=== PATIENT | female | born 1960 | race Caucasian/White ===

== ENCOUNTER → 2019-10-23 11:15 | Outpatient (CLI) | payer OTHER, SELFPAY ==
--- NOTE | ~2019-10-23 | DEXA_ITS ---
Bone Density Report Name: Dyana Weiner Age: 59 Sex: Female Ethnicity: White Date of : 1960 Indication: postmenopausal; screening for osteoporosis; height loss; Referring Provider: Hazel Mcmillan Study: Bone densitometry was performed. Exam Date: October 23, 2019 Accession number: [id number] Bone Density: Region BMD T-score Z-score Classification AP Spine (L1-L4) 1.065 0.2 1.7 Normal Femoral Neck (Left) 0.895 0.4 1.8 Normal Total Hip (Left) 1.103 1.3 2.4 Normal Femoral Neck (Right) 0.918 0.6 2.0 Normal Total Hip (Right) 1.083 1.2 2.2 Normal Total Hip Mean 1.093 1.3 2.3 Normal World Health Organization criteria for BMD impression classify patients as: Normal (T-score at or above -1.0), Osteopenia (T-score between -1.0 and -2.5), or Osteoporosis (T-score at or below -2.5). 10-year Fracture Risk: FRAX not reported because: All T-scores for Spine Total, Hip Total, Femoral Neck at or above -1.0 Previous Exams: Region Exam Age BMD T-score BMD Change BMD Change Date g/cm2 vs Baseline vs Previous AP Spine(L1-L4) 10/23/2019 59 1.065 0.2 0.004 0.004 03/10/2016 56 1.061 0.1 Total Hip(Left) 10/23/2019 59 1.103 1.3 0.024 0.024 03/10/2016 56 1.079 1.1 Total Hip(Right) 10/23/2019 59 1.083 1.2 -0.013 -0.013 03/10/2016 56 1.096 1.3 *Denotes significance at 95% confidence level, LSC for AP Spine = 0.022 g/cm2, LSC for Total Hip = 0.027 g/cm2 Clinical Information Provided by Patient: Has used the following medications: Vitamin D Patient maximum height was 67 Menopause Age: 46 No regular weight bearing exercise Drinks caffeinated beverages Onset of menses at age 11 Number of children 2 Impression: The patient has normal bone mass. No significant bone loss was observed. Discussion: BONE DENSITY IS ABOVE THE MINIMUM DESIRABLE LEVEL AT ALL SKELETAL SITES TESTED. This patient?s bone mineral density is above the minimum desirable level (T-score -1.0 or better) at all sites measured. The patient should follow a healthful lifestyle (good nutrition with adequate calcium and vitamin D, and appropriate weight-bearing exercise). Follow-Up: Consider repeating this study in 5 years or sooner if there is some new clinical indication. Reported by: RENAN on 10/23/2019 11:38:00 AM. Reviewed, dictated and finalized at locat
== END ==
PROVIDERS: Visit Provider Nurse Practitioner Family
DX: Z13.820 Encounter for screening for osteoporosis (principal); Z78.0 Asymptomatic menopausal state
CPT/HCPCS: 77080

== ENCOUNTER → 2020-04-22 09:18 | Outpatient (CLI) | payer OTHER, SELFPAY ==
--- NOTE | ~2020-04-22 | XR_ITS ---
EXAMINATION: XR knee LT 3V DATE: 04/22/2020 09:37 INDICATION: Left knee pain TECHNIQUE: Three views of the left knee were obtained. COMPARISON: None. FINDINGS: Alignment is normal. No fracture or osteochondral lesion. There is mild tricompartmental os teoarthritis characterized by tiny marginal osteophytes. No joint effusion/synovitis. Soft tissues a re unremarkable. IMPRESSION: 1. No acute osseous abnormality. Reviewed, dictated and finalized at location A.
== END ==
PROVIDERS: PCP Family Medicine; Visit Provider Nurse Practitioner Family
DX: S89.92XA Unspecified injury of left lower leg, initial encounter (principal)
CPT/HCPCS: 73562

== ENCOUNTER 2020-05-16 09:16 | Outpatient (CLI) | payer OTHER, BC, SELFPAY ==
--- NOTE | ~2020-05-16 | MR_ITS ---
EXAMINATION: MR knee LT wo con DATE: 05/16/2020 10:02 INDICATION: Unspecified injury of left lower leg, initial encounter. TECHNIQUE: Magnetic resonance imaging (MRI) of the left knee was performed without intravenous contra st. Sequences included axial PD-weighted FS FSE, coronal PD-weighted FSE and PD-weighted FS FSE, sagi ttal PD-weighted FSE, and sagittal T2-weighted FS FSE. COMPARISON: Left knee radiographs 04/22/2020 FINDINGS: Medial compartment: There is a complex tear involving posterior horn of medial meniscus. There is cartilage surface irreg ularity of tibial condyle. There is partial-thickness cartilage loss of femoral condyle, deep at the central articular surface. Osteophytes are noted. Lateral compartment: Lateral meniscus is normal. There is shallow partial-thickness cartilage loss of tibial condyle and f emoral condyle. Osteophytes are noted. Patellofemoral compartment: There is full-thickness cartilage loss of patellar medial facet, median ridge, and lateral facet with moderate subchondral edema-like marrow signal intensity. There is full-thickness cartilage loss of l ateral trochlea with mild subchondral edema-like marrow signal intensity. There is partial-thickness cartilage loss of central trochlea. Osteophytes are noted. Ligaments and tendons: Anterior and posterior cruciate ligaments are normal. There are changes of prior sprain of medial col lateral ligament characterized by thickening and increased signal intensity proximally. Lateral colla teral ligament complex is intact. There is mild patellar tendinopathy. Fluid: There is a small knee joint effusion. There is a small Carson's cyst. IMPRESSION: 1. Severe chondrosis of patellofemoral compartment, moderate chondrosis of medial compartment, and mi ld chondrosis of lateral compartment. 2. Tear of medial meniscus. 3. Small knee joint effusion. 4. Small Carson's cyst. Reviewed, dictated and finalized at location A. P MATERIALS BUYER IMPRESSION: 1. Severe chondrosis of patellofemoral compartment, moderate chondrosis of medi al compartment, and mild chondrosis of lateral compartment. 2. Tear of medial meniscus. 3. Small knee joint effusion. 4. Small Carson's cyst.
== END 2020-05-16 09:17 | disposition home or self-care (01) ==
PROVIDERS: PCP Family Medicine; Visit Provider Nurse Practitioner Family
DX: S83.242A Other tear of medial meniscus, current injury, left knee, initial encounter (principal); M25.462 Effusion, left knee; M71.22 Synovial cyst of popliteal space [Baker], left knee
CPT/HCPCS: 73721

== ENCOUNTER 2023-12-21 11:49 | Outpatient (CLI) | payer MEDICARE, SELFPAY ==
--- NOTE | ~2023-12-21 | XR_ITS ---
Left Knee Technique: AP, lateral, and sunrise views were obtained. Clinical History: Osteoarthritis Findings: No fracture or dislocation is seen. There is moderate medial joint line degenerative spurri ng. There is additional spurring at the intercondylar notch. There is mild patellar spurring.. Soft t issues are unremarkable. No joint effusion is seen. Impression: Degenerative change, as detailed above, worst in the medial compartment. Reviewed, dictated and finalized at location M. Impression: Degenerative change, as detailed above, worst in the medial compartment.
--- NOTE | ~2023-12-21 | XR_ITS ---
AP view of the pelvis and AP and lateral views of the left hip Clinical history: Trochanteric bursitis Findings: No acute fracture or dislocation is seen. Osseous alignment is anatomic. Bilateral hip and SI joint spaces are preserved. Soft tissues are unremarkable. Impression: No significant abnormality is seen. Reviewed, dictated and finalized at [facility]. Impression: No significant abnormality is seen.
== END 2023-12-21 11:50 | disposition home or self-care (01) ==
LOC: ANHIMG 11:53
PROVIDERS: PCP Family Medicine; Visit Provider Physician Assistant Surgical
DX: M17.12 Unilateral primary osteoarthritis, left knee (principal); M70.62 Trochanteric bursitis, left hip
CPT/HCPCS: 73502; 73564

== ENCOUNTER 2024-07-26 10:44 | Outpatient (CLI) | payer MEDICARE, SELFPAY ==
--- NOTE | ~2024-07-26 | CT_ITS ---
CT of the Abdomen: Indication: Other specified disorder of adrenal gland Technique: 2.5 mm axial scans were obtained through the abdomen following intravenous administration of 100 cc of Omnipaque 350. Dose reduction technique was used on this scan by utilizing automated ex posure control and iterative reconstruction technique. The dose-length product (DLP) was 377.50 mGy-c m. Findings: Scans through the lung bases demonstrate calcified right lower lobe granuloma. 6 mm avidly enhancing focus at the dome the liver is present, possibly flash filling hemangioma. The spleen, pancreas, right adrenal gland, and kidneys are within normal limits. 1.9 cm left adrenal nodu le present, indeterminate on this exam. Probable minimal gallbladder wall thickening and/or perichole cystic inflammatory change. No evidence of aortic aneurysm. No lymphadenopathy. Duodenal diverticulum noted. Visualized bowel loops are otherwise unremarkable. No ascites. Impression: Minimal gallbladder wall thickening and/or pericholecystic inflammatory change. If there is concern f or acute cholecystitis, consider ultrasound and/or HIDA scan for further evaluation. 1.9 cm left adrenal nodule is indeterminate on this exam. Based on report from prior CT dated 11/19/19 17 (images are not available for direct comparison), this nodule is without significant change, and t herefore almost certainly benign adenoma. Adrenal protocol MR or CT scan (pre and postcontrast imagin g) could potentially be considered to further confirm benign adenoma, if clinically indicated. 6 mm enhancing focus at the dome of liver, possibly postural hemangioma. Reviewed, dictated and finalized at [facility]. Impression: Minimal gallbladder wall thickening and/or pericholecystic inflammatory change. If there is concern for acute cholecystitis, consider ultrasound and/or HIDA s can for further evaluation. 1.9 cm left adrenal nodule is indeterminate on this exam. Based on report from prior CT dated 11/18/2016 (images are not available for direct comparison), this nodule is without significant change, and therefore almost certainly benign ad enoma. Adrenal protocol MR or CT scan (pre and postcontrast imaging) could pote ntially be considered to further confirm benign adenoma, if clinically indicate d. 6 mm enhancing focus at the dome of liver, possibly postural hemangioma.
--- OUTSIDE RECORDS SUMMARY | 2024-07-26 10:51 | XMS_ITS | Clinical Summary ---
Author Organization [facility] [place] [address] Address [address] [place] [address] Care Team Providers Care University Controller Name Role Phone Michelet Black MD Primary Care Provider [phone] Allergies No known active allergies Medications atorvastatin (LIPITOR) 10 mg tablet Take by mouth. 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 Gender Identity Not on file Sexual Orientation Not on file Obstetrics History Last Filed Vital Signs Vital Sign Reading Time Taken Comments Blood Pressure 110/70 12/18/2016 11:52 AM CDT Pulse 83 12/18/2016 11:52 AM CDT Temperature 36.8 C (98.2 F) 12/18/2016 11:52 AM CDT Respiratory Rate 16 12/18/2016 11:52 AM CDT Oxygen Saturation 96% 12/18/2016 11:52 AM CDT Inhaled Oxygen Concentration - - Weight 81.6 kg (180 lb) 12/18/2016 11:52 AM CDT Height 170.2 cm (5' 7 ) 12/18/2016 11:52 AM CDT Body Mass Index 28.19 12/18/2016 11:52 AM CDT Plan of Treatment Not on file Insurance [facility] PL[facility] Care Teams University Controller Relationship Specialty Start Date End Date Michelet Black MD PCP - General Family Medicine 12/18/16
--- OUTSIDE RECORDS SUMMARY | 2024-07-26 10:51 | XMS_ITS | Referral Summary ---
Author Organization [facility] [place] [address] [place] [address] Care Team Providers Care Corporate Job Titles Name Role Phone Michelet Black MD Primary Care Provider [phone] Allergies No known active allergies Medications atorvastatin (LIPITOR) 10 mg tablet Take by mouth. 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 PLUS Care Teams Corporate Job Titles Relationship Specialty Start Date End Date Michelet Black MD PCP - General Family Medicine 12/18/16
--- OUTSIDE RECORDS SUMMARY | 2024-07-26 10:52 | XMS_ITS | Data Portability ---
[facility] [address] [facility] [place] [address] Assessment No assessment recorded. Plan of Treatment Reminders Order Date Submit Date Provider Last Modified By Organization Details Last Modified Time Details Appointments None record ed. Lab None record ed. Referral None record ed. Procedures None record ed. Surgeries None record ed. Imaging None record ed. Medication Orders None record ed. Patient TargetsNo targets recorded. Patient InstructionsNo instructions recorded. Reason for Referral None Reported. Medical Equipment None Reported. Allergies No known drug allergies Medications Name Sig Start Date Stop Date Status Note LastModified by Organization Details LastModified Time atorvastati n 20 mg tablet TAKE 1 TABLET BY MOUTH EVERY DAY active Not Available Not Available No t Available doxycycline monohydrate 100 mg tablet TAKE 1 TABLET BY MOUTH EVERY DAY 08/14 completed Not Available Not Available Not Available triamcinolo ne acetonide 0.025 % topical cream APPLY TO AFFECTED AREA(S) TWICE A DAY NEEDED FOR ITCH OR RASH 08/14 completed Not Available Not Available Not Available cyclosporin e 0.05 % eye drops in a dropperette INSTILL 1 DROP INTO BOTH EYES TWICE A DAY active Not Available Not Available No t Available Vitals Date Recorded Body height Body mass index (BMI) Body weight Heart rate Respiratory rate Body temperature Systolic blood pressure Diastolic blood pressure Provider Name and Address Organization Details Last Updated DateTime 4 170.18 cm 28.1 kg/m2 97764.7 5 g 85 /min 16 /min 97.8 [degF] 134 mm[Hg] 85 mm[Hg] [facility] 4 11:54:11 Social History Question Answer Notes LastModified by Organizat ion Details LastModified Time Tobacco Smoking Status Never Smoker Kinjal Wood MA [facility] 08/15/2023 11:56:01 Do You Have An Advance Directive? No Information n ot available 08/15/2023 Are You Blind Or Do You Have Difficulty Seeing? No Information n ot available 08/15/2023 In The 14 Days Before Symptom Onset, Have You Had Close Contact With A Laboratory-confirm ed COVID-19 While That Case Was Ill? No Information n ot available 08/15/2023 In The 14 Days Before Symptom Onset, Have You Had Close Contact With A Person Who Is Under Investigation For COVID-19 While That Person Was Ill? No Information not available 08/15/2023 Have You Been To An Area Known To Be High Risk For COVID-19? No Information not available 08/15/2023 Are You Deaf Or Do You Have Serious Difficulty Hearing? Yes Information not available 08/15/2023 What Type Of Diet Are You Following? REGULAR Information n ot available 08/15/2023 What Was The Date Of Your Most Recent Tobacco Screening? 08/15/2023 Information not available 08/15/2023 Do You Have Any Pets? Yes Information not available 08/15/2023 What Is Your Relationship Status? Information not available 08/15/2023 Do You Use Sunscreen Routinely? Yes Information not available 08/15/2023 Sex: Unknown Functional Status Question Answer Note LastModified by Organization Details LastModified Time Are you currently employed? No Information not available 08/15/2023 What is your exercise level? Moderate Information not available 08/15/2023 What type of noise exposure are you exposed to? noExposureToExcessiveNoise Infor mation not available 08/15/2023 Mental Status Question Answer Note LastModified by Organization D etails LastModified Time Do you feel stressed (tense, restless, nervous, or anxious, or unable to sleep at night)? [id number] Information not available 08/15/2023 Family History Relationship Description Onset Age of this Age Resolved Age Notes LastModified by Organization Details LastModified Time Father Cerebrovascu lar accident rreiterma Not available 01/2024 11:55:35 Mother Rheumatoid arthritis rreiterma Not available 2023 11:55:46 Medical History Condition Response Emphysema N Depression N Glaucoma N Anesthesia Complications N Anxiety Disorder N Arthritis N Hearing Loss N Acid Reflux (GERD) N Cancer N Stroke N Fibromyalgia N Headaches N Speech Delay N Kidney Disease N Allergies/Hayfever N Heart Problems N Heart Conditions N Migraines N Thyroid Problems N Developmental Delay N Anemia N Immune System Disorder N Heart Attack (ND) N Diabetes N Bleeding Disorder N Tuberculosis N Hyperlipidemia Y Asthma N Allergies N Sleep Disorder N GERD/Reflux N Heart Disease N Hypertension N Gynecological HistoryNo gynecological history recorded. Obstetrics History GPAL:G 0 P 0 0 0 0 Past Encounters Encounter ID Performer Location Encounter Start Date Encounter Closed Date Diagnosis/Indication Diagnosis SNOMED-CT Code Diagnosis ICD10 Code Diagnosis Note [id number] Mitch Le MD [facility] (Adult Med) [address] [place] [address] 08/15/2023 11:39:00 08/16/2023 15:58:35 Bilateral tinnitus 5875750113 102 H93.13 follow up with an audio Health Concerns Section Related Observation LastModified by Organization Detai ls LastModified Time None Recorded Concern Status LastModified by Organization Details LastModified Time None Recorded Advance Directives Directive N: Payers Encounter Date Sequence Insurance Name Policy Number Policy Robb Covered Member ID Robb Member ID Guarantor Name 08/15/2023 1 [facility] (MEDICARE REPLACEMENT/A DVANTAGE - HMO) [id number] Dyana Weiner [id number] Dyaan Weiner Notes Date Note Type Note Provider Name and Address Organization Details Recorded Time 08/15/2023 text/html Pt complaining o f ringing in her ears. She has had problems for years but it has gotten worse over the last couple of yrs. She has noticed some hearing loss as well Mitch Le MD Attn: Accounting[address] [facility], [place], [address], [facility] 08/15/2023 12:06:29 OBGyn Episode No OBEpisode recorded.
--- OUTSIDE RECORDS SUMMARY | 2024-07-26 10:52 | XMS_ITS | Clinical Summary ---
Author Organization [facility] Address [address] [place] [address] Phone Care Team Providers Care Control Room Helper Name Role Phone Michelet Black MD Primary Care Provider [phone] Allergies No known active allergies Medications levothyroxine (SYNTHROID) 75 MCG Tablet Take 75 mcg by mouth daily. Active atorvastatin (LIPITOR) 20 MG Tablet Take 20 mg by mouth daily. Active Coconut Oil 1000 MG Capsule Take 1 mg by mouth 2 times daily. Active Cholecalciferol (VITAMIN D PO) Take 5,000 Int'l Units by mouth daily. Active Misc Natural Products (TART RIOS ADVANCED PO) Take 1,000 mg by mouth daily. Active oxyCODONE-aceta minophen (PERCOCET) 5-325 MG Tablet Take 1 Tab by mouth every 4 hours as needed for Moderate or more severe pain. 30 Tab 12/06/2017 Active Active Problems Problem Noted Date Diagnosed Date Hypothyroidism 12/06/2017 Hyperlipidemia 12/06/2017 Toe contracture, right 12/06/2017 Family History Medical History Relation Name Comments Glaucoma Father Hypertension Father Stroke Father Arthritis Mother Relation Name Status Comments Father Alive Mother Alive Social History Tobacco Use Types Packs/Day Years Used Date Smoking Tobacco: Never Smokeless Tobacco: Never Alcohol Use Standard Drinks/Week Comments No 0 (1 standard drink = 0.6 oz pur e alcohol) Comments Unknown Sex and Gender Information Value Date Recorded Sex Assigned at Not on file Legal Sex Female 7:18 PM CDT Gender Identity Not on file Sexual Orientation Not on file Last Filed Vital Signs Vital Sign Reading Time Taken Comments Blood Pressure 126/78 12/06/2017 12:12 PM CDT Pulse 68 12/06/2017 12:12 PM CDT Temperature 36.7 C (98.1 F) 12/06/2017 12:12 PM CDT Respiratory Rate 20 12/06/2017 12:12 PM CDT Oxygen Saturation 96% 12/06/2017 12:12 PM CDT Inhaled Oxygen Concentration - - Weight 81.6 kg (180 lb) 12/06/2017 6:10 AM CDT Height 170.2 cm (5' 7 ) 12/06/2017 6:10 AM CDT Body Mass Index 28.19 12/06/2017 6:10 AM CDT Plan of Treatment Health Maintenance Due Date Last Done Comments Hepatitis C Virus (HCV) Screening 1960 TdaP Immunization 1960 Colonoscopy 2003 Colorectal Cancer Screening 2003 Cologuard 01/11/2008 Immunochemical Fecal Occult Blood 01/11/2008 Pneumococcal Immunization (5 0+ years) (1 of 1 - PCV) 01/11/2008 Zoster Immunization (1 of 2) 01/11/2008 Influenza Immunization (#1) 2023 SARS-COV-2 Immunization ( - 2023- season) 2023 Respiratory Syncytial Virus (RSV) Immunization (Adult) (1 - 1-dose 75+ series) 2033 Hepatitis B Immunization Aged Out No longer eligible based on patient's age to complete this topic Meningococcal Immunization (ACWY) Aged Out No longer eligible based on patient's age to complete this topic Rotavirus Immunization Aged Out No lo nger eligible based on patient's age to complete this topic Medical Devices Implanted Type Area [employer] Driver Device Identifier Shelf Expiration Date Model / Serial / Lot 2-Step Implant Implanted:Qty: 1 on 12/06/2017 by Keegan Quevedo DPM at [facility] Right: Toe [employer] / / 0.045 K- Wire Implanted:Qty: 1 on 12/06/2017 by Keegan Quevedo DPM at [facility] Right: Toe / / Explanted Type Area [employer] Truck Driver Device Identifier Shelf Expiration Date Model / Serial / Lot 2 Step Implant Explanted:Qty: 1 on 12/06/2017 at [facility] Right: Robert [employer] / / 0.045 K-Wire Explanted:Qty: 1 on 12/06/2017 at [facility] Right: Toe -006 / -006 / Care Teams Control Room Helper Relationship Specialty Start Date End Date Michelet Black MD [address] [place] [address] PCP - General Family Medicine 12/01/17
[2024-07-26 11:06] LABS: Estimated Glomerular Filt Rate > 60
== END 2024-07-26 10:45 | disposition home or self-care (01) ==
PROVIDERS: PCP Family Medicine; Visit Provider Nurse Practitioner Family
DX: R93.2 Abnormal findings on diagnostic imaging of liver and biliary tract (principal); E27.8 Other specified disorders of adrenal gland
CPT/HCPCS: 74160; Q9967

== ENCOUNTER 2024-10-08 15:17 | Emergency (ER) | payer MEDICARE, SELFPAY ==
[2024-10-08 15:22] VITALS: BP 148/89; PULSE 69; RESP 20; TEMP 36.7; O2SAT 100
--- NOTE | 2024-10-08 15:23 | ED_ITS ---
HPI - Skin/Abscess/Foreign Bdy General Chief complaint: Skin/Abscess/Foreign Body Stated complaint: left arm rash/swelling Time Seen by Provider: 10/08/24 15:23 Source: patient Mode of arrival: ambulatory Limitations: no limitations History of Present Illness HPI narrative: 64 yo female presented for c/o rash to left forearm. Onset 3 days. States she has allergy to a weed, not poison shantel. Says it usually takes a week to resolve. However she is concerned about swelling to the left wrist. Says the wrist feels tight with movement. Denies numbness, tingling or weakness. Related Data Allergies Allergy/AdvReac Type Severity Reaction Status Date / Time No Known Allergies Allergy Verified 10/08/24 15:27 Review of Systems Review of Systems: CONSTITUTIONAL: Denies body aches, fever, chills, or sweats. EYES: Denies visual changes, redness, or discharge. ENT: Denies rhinorrhea, congestion CARDIOVASCULAR: Denies chest pain, palpitations, or edema. RESPIRATORY: Denies cough or dyspnea. GASTROINTESTINAL: Denies abdominal pain, nausea, vomiting, or diarrhea. SKIN: per HPI MUSCULOSKELETAL: Denies back pain, joint pain, or myalgia. NEUROLOGIC: Denies headache, numbness, tingling, or weakness. [facility] Past Medical History Medical History Abnormal abdominal CT scan Impingement syndrome of left shoulder Impingement syndrome of right shoulder Plant allergic contact dermatitis Adult BMI 27.0-27.9 kg/sq m Screening for colon cancer Arthritis of left knee Hip bursitis, left Left hip pain Hyperlipidemia Posterior left knee pain Vitamin D deficiency, unspecified On statin therapy Hypothyroidism Other hyperlipidemia Left adrenal mass Cholelithiasis with chronic cholecystitis Surgical History Surgical History History of H/O breast augmentation Bunion of great toe Family History Family History Father Hypertension Cerebrovascular accident Mother Arthritis Sibling Diabetes mellitus Social History Social History Smoking status: Never smoker Second hand tobacco smoke exposure: No Alcohol intake: current Alcohol use details: couple times a year Substance use: never Substance use type: does not use Do You Feel Safe in your Home?: Yes Lack of Transportation: No Lack of Food: Never True Current Housing: I Have Housing Concerned About Future Housing: No Difficulty Paying Gas/Electric Bills: No Difficulty Paying for Meds: No Currently Unemployed: No Education: High School Diploma/GED Difficulty w/ Childcare or Family Care: No Living arrangements: with family Occupation/Education: retired 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 Please see nursing chart for further information. There is no relevant family history pertinent to the presenting complaint Exam Narrative: GENERAL: Well-appearing EYES: conjunctivae clear, and EOMI. ENT: Mucous membranes moist. Oropharynx without edema, erythema or lesions. NECK: Supple. No lymphadenopathy CHEST: Clear to auscultation. HEART: Regular rate and rhythm. SKIN: Warm, dry. scattered erythematous patches noted to the left forearm, evidence of scratching, no drainage, mild localized swelling, nontender c/w contact derm. NEURO: Alert and oriented x3. Course Course Emergency Course: Patient is aware of diagnosis, understands and agrees to treatment plan. Anticipatory guidance given. Patient agrees to follow-up as directed and is aware of reasons to seek care at the emergency department. Portions of this record may have been created with voice recognition software Level of Care: Express Care Visit Vital Signs Vital signs: Reviewed MDM - Skin/Abscess/Foreign Bdy MDM Narrative Medical decision making narrative: Discussed physical exam findings. Shared decision making pt requesting steroid cream over oral at this time. Advised supportive measures and signs/symptoms to go to the ER. Pt is appropriate for outpt treatment and f/u. Differential Diagnosis Differential diagnosis: Likely abscess of skin or subcutaneous tissue, viral exanthem, dermatophytosis, urticaria, herpes zoster, cellulitis, eczema, insect bites, impetigo and contact dermatitis Discharge Plan Discharge Clinical Impression: Contact dermatitis Patient Disposition: Home Condition: Stable Instructions: Antibiotic Form, Contact Dermatitis (ED) Additional Instructions: Wash the area with gentle soap and water only. Use skin cream as prescribed to reduce itchiness Avoid scratching when possible to prevent worsening of the condition and disruption of the skin that could lead to bacterial infection To relieve itching, place a cool washcloth or some ice over the area that itches, rather than scratching Follow up with primary care provider ER if rash worsens or you have chest pain, trouble breathing, become hoarse, or start wheezing, develop belly cramps, vomiting or feel dizzy. Patient Language: Estonian Prescriptions: New triamcinolone acetonide 0.1 % cream 1 applic topical BID 7 Days Qty: 30 0RF No Action atorvastatin 20 mg tablet 20 mg PO DAILY Qty: 90 1RF Follow-up/Referrals: Michelet Black MD [Primary Care Provider] - Time of Disposition: 15:33
--- OUTSIDE RECORDS SUMMARY | 2024-10-08 15:23 | XMS_ITS | Referral Summary ---
Author Organization [facility] [address] [place] [address] Care Team Providers Care Eap Clinician Name Role Phone Michelet Black MD Primary Care Provider [phone] Allergies No known active allergies Medications atorvastatin (LIPITOR) 10 mg tablet Take by mouth. 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
--- OUTSIDE RECORDS SUMMARY | 2024-10-08 15:24 | XMS_ITS | Clinical Summary ---
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
--- OUTSIDE RECORDS SUMMARY | 2024-10-08 15:24 | XMS_ITS | Clinical Summary ---
Author Organization [facility] Address [address] [place] [address] Phone Care Team Providers Care Clerical Warehouse Worker Name Role Phone Michelet Black MD Primary Care Provider [phone] Allergies No known active allergies Medications levothyroxine [...] 6:10 AM CDT Height 170.2 cm (5' 7) 12/06/2017 6:10 AM CDT Body Mass Index 28.19 12/06/2017 6:10 AM CDT Plan of Treatment Health Maintenance Due Date Last Done Comments Hepatitis C Virus (HCV) Screening 1960 TdaP Immunization 1960 Cologuard 2003 Colonoscopy 2003 Colorectal Cancer Screening 2003 Immunochemical Fecal Occult Blood 2003 Pneumococcal Immunization (5 0+ years) (1 of 1 - PCV) 01/11/2008 Zoster Immunization (1 of 2) 01/11/2008 SARS-COV-2 Immunization (1 - season) 2023 Influenza Immunization (#1) 2024 Respiratory Syncytial Virus (RSV) Immunization (Adult) (1 - 1-dose 75+ series) 2033 Hepatitis B Immunization Aged Out No longer eligible based on patient's age to complete this topic Human Papillomavirus (HPV) Immunization Aged Out No longer eligible b ased on patient's age to complete this topic Meningococcal Immunization (ACWY) Aged Out No longer eligible based on patient's age to complete this topic Rotavirus Immunization Aged Out No lo nger eligible based on patient's age to complete this topic Medical Devices Implanted Type Area Machine Specialist Device Identifier Shelf Expiration Date Model / Serial / Lot 2-Step Implant Implanted:Qty: 1 on 12/06/2017 by Keegan Quevedo DPM at [facility] Right: Toe [facility] [employer] - / / 0.045 K- Wire Implanted:Qty: 1 on 12/06/2017 by Keegan Quevedo DPM at [facility] Right: Toe / / Explanted Type Area Machine Specialist Device Identifier Shelf Expiration Date Model / Serial / Lot 2 Step Implant Explanted:Qty: 1 on 12/06/2017 at [facility] Right: Toe [employer] / / 0.045 K-Wire Explanted:Qty: 1 on 12/06/2017 at [facility] Right: Toe / / Care Teams Clerical Warehouse Worker Relationship Specialty Start Date End Date Michelet Black MD [address] [place], [place] [id number] PCP - General Family Medicine 12/01/17
== END 2024-10-08 15:38 | disposition home or self-care (01) ==
PROVIDERS: Emergency Provider Nurse Practitioner Family; PCP Family Medicine
DX: L25.9 Unspecified contact dermatitis, unspecified cause (principal); E03.9 Hypothyroidism, unspecified; E78.49 Other hyperlipidemia; M17.12 Unilateral primary osteoarthritis, left knee
CPT/HCPCS: 99213; G0463

== ENCOUNTER 2024-10-21 10:16 | Outpatient (CLI) | payer MEDICARE, SELFPAY ==
--- NOTE | ~2024-10-21 | DEXA_ITS ---
Bone Density Report Name: JANICE CHRISTIANSON Age: 64 Sex: Female Ethnicity: White Date of : 1960 Indication: postmenopausal; screening for osteoporosis; height loss; Referring Provider: BEN LUCAS Study: Bone densitometry was performed. Exam Date: October 21, 2024 Accession number: [id number] Bone Density: Region BMD T-score Z-score Classification AP Spine(L1-L4) 1.098 0.5 2.4 Normal Femoral Neck (Left) 0.876 0.2 1.9 Normal Total Hip (Left) 1.056 0.9 2.3 Normal Femoral Neck (Right) 0.861 0.1 1.7 Normal Total Hip (Right) 1.036 0.8 2.1 Normal Total Hip Mean 1.046 0.9 2.2 Normal World Health Organization criteria for BMD impression classify patients as: Normal (T-score at or above -1.0), Osteopenia (T-score between -1.0 and -2.5), or Osteoporosis (T-score at or below -2.5). 10-year Fracture Risk: FRAX not reported because: All T-scores for Spine Total, Hip Total, Femoral Neck at or above -1.0 Previous Exams: -- Region Exam Age BMD T-score BMD Change BMD Change Date g/cm2 vs Baseline vs Previous -- AP Spine (L1-L4) 10/21/2024 64 1.098 0.5 3.5%# 3.1%* 10/23/2019 59 1.065 0.2 0.4%# 0.4%# 03/10/2016 56 1.061 0.1 Total Hip(Left) 10/21/2024 64 1.056 0.9 -2.1%# -4.2%* 10/23/2019 59 1.103 1.3 2.2%# 2.2%# 03/10/2016 56 1.079 1.1 Total Hip(Right) 10/21/2024 64 1.036 0.8 -5.5%# -4.4%* 10/23/2019 59 1.083 1.2 -1.1%# -1.1%# 03/10/2016 56 1.096 1.3 -- *Denotes significance at 95% confidence level, LSC for AP Spine = 0.022 g/cm2, LSC for Total Hip = 0.027 g/cm2 # Denotes dissimilar scan types or analysis methods Clinical Information Provided by Patient: Has used the following medications: Vitamin D Patient maximum height was 67 Menopause Age: 46 Onset of menses at age 11 Number of children 2 Missed period for more than 6 months in a row Impression: The patient has normal bone mass. The BMD for the Total Hip(Left) decreased, changing by -4.2% since the last DXA exam. The BMD for the Total Hip(Right) decreased, changing by -4.4% since the last DXA exam. Discussion: BONE DENSITY IS ABOVE THE MINIMUM DESIRABLE LEVEL AT ALL SKELETAL SITES TESTED. This patient?s bone mineral density is above the minimum desirable level (T-score -1.0 or better) at all sites measured. The patient should follow a healthful lifestyle (good nutrition with adequate calcium and vitamin D, and appropriate weight-bearing exercise). Follow-Up: Consider repeating this study in 3 to 4 years to reassess this patient's status, or sooner if there is some new clinical indication. Reported by: ERNIE on 10/21/2024 2:05:00 PM. Reviewed, dictated and finalized at location A.
== END 2024-10-21 10:17 | disposition home or self-care (01) ==
LOC: MICIMG 10:17
PROVIDERS: PCP Family Medicine; Visit Provider Nurse Practitioner Family
DX: Z78.0 Asymptomatic menopausal state (principal)
CPT/HCPCS: 77080

== ENCOUNTER 2025-01-27 09:04 | Outpatient (CLI) | payer MEDICARE, SELFPAY ==
--- NOTE | ~2025-01-27 | XR_ITS ---
EXAMINATION: XR knee RT min 4V, XR knee LT min 4V DATE: 01/27/2025 09:42 INDICATION: Bilateral knee pain. TECHNIQUE: AP standing view of both knees were obtained. Lateral, oblique and sunrise view both knees were also obtained. COMPARISON: Left knee x-ray dated 12/21/2023 FINDINGS: Significant grade 3 to grade 4 degenerative changes of medial compartment of the left knee. Milder degenerative changes of patellofemoral joint and lateral compartment on the left side. Moderate grade 2 to grade 3 degenerative changes of the medial compartment on the right side. Significant grade 4 degenerative changes of patellofemoral articulation at the lateral facet. IMPRESSION: 1. Significant grade 3 to grade 4 changes of medial compartment of left knee. Lesser changes of other compartments on the left side. 2. Significant, grade 4 degenerative changes of lateral facet of patellofemoral articulation of the right knee. Lesser changes of other compartments. Reviewed, dictated and finalized at location [facility]. [facility] IMPRESSION: 1. Significant grade 3 to grade 4 changes of medial compartment of left knee. L margoth changes of other compartments on the left side. 2. Significant, grade 4 degenerative changes of lateral facet of patellofemoral articulation of the right knee. Lesser changes of other compartments.
--- OUTSIDE RECORDS SUMMARY | 2025-01-27 09:55 | XMS_ITS | Clinical Summary ---
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
--- OUTSIDE RECORDS SUMMARY | 2025-01-27 09:55 | XMS_ITS | Data Portability ---
[facility] [address] [facility] [place] [address] Assessment No assessment recorded. Plan of Treatment [...] Heart rate Respiratory rate Body temperature Systolic And Diastolic Provider Name and Address Organization Details Last Updated DateTime 4 170.18 cm 28.1 kg/m2 74008.7 5 g 85 /min 16 /min 97.8 [degF] 134/85 mm[Hg] Kinjal Wood MA [facility] 4 11:54:11 Social History Question Answer Notes LastModified by Organizat ion Details LastModified Time Tobacco Smoking Status Never Smoker Kinjal Wood MA [facility] 08/15/2023 11:56:01 Do You Have An Advance [...] anxious, or unable to sleep at night)? [id number] Information not available 08/15/2023 Family History Relationship Description Onset Age of this Age Resolved Age Notes LastModified by Organization Details LastModified Time Father Cerebrovascu lar accident rreiterma Not available 01/2024 11:55:35 Mother Rheumatoid arthritis rreiterma Not available 2023 11:55:46 Medical History Condition Response Emphysema N Depression N Anxiety Disorder N Arthritis N Acid Reflux (GERD) N Cancer N Stroke N Fibromyalgia N Headaches N Kidney Disease N Heart Problems N Heart Conditions N Migraines N Bleeding Disorder N Tuberculosis N Asthma N Allergies N Sleep Disorder N GERD/Reflux N Glaucoma N Anesthesia Complications N Hearing Loss N Speech Delay N Allergies/Hayfever N Thyroid Problems N Developmental Delay N Anemia N Immune System Disorder N Heart Attack (AR) N Diabetes N Hyperlipidemia Y Heart Disease N Hypertension N Gynecological HistoryNo gynecological history recorded. Obstetrics History GPAL:G 0 P 0 0 0 0 Past Encounters Encounter ID Performer Location Encounter Start Date Encounter Closed Date Diagnosis/Indication Diagnosis SNOMED-CT Code Diagnosis ICD10 Code Diagnosis IMO Codes Diagnosis Note [id number] Mitch Le MD [facility] (Adult Med) [address] [place] [address] 08/15/2023 11:39:00 08/16/2023 15:58:35 Bilateral tinnitus 5006151222 102 H93.13 follow up with an audio Health Concerns Section Related Observation LastModified by Organization Detai ls LastModified Time None Recorded Concern Status LastModified by Organization Details LastModified Time None Recorded Advance Directives Directive N: Payers Insurance Date Sequence Insurance Name Policy Number Policy Robb Covered Member ID Robb Member ID Guarantor Name 08/16/2023 1 [facility] (MEDICARE REPLACEMENT/A DVANTAGE - HMO) [id number] Dyana Weiner [id number] Dyana Weiner Notes Date Note Type Note Provider Name and Address Organization Details Recorded Time 08/15/2023 text/html ROS as noted in the HPI Pt complaining of ringing in her ears. She has had problems for years but it has gotten worse over the last couple of yrs. She has noticed some hearing loss as well Mitch Le MD Attn: Accounting,[address], [place], [address], [facility] 08/15/2023 12:06:29 OBGyn Episode No OBEpisode recorded.
--- OUTSIDE RECORDS SUMMARY | 2025-01-27 09:55 | XMS_ITS | Clinical Summary ---
Author Organization [facility] Address [address] [place] [address] Phone Care Team Providers Care Repairer Hairspring Name Role Phone Michelet Black MD Primary Care Provider [phone] Allergies No known active allergies Medications levothyroxine [...] Virus (HCV) Screening 1960 TdaP Immunization 1960 Varicella Immunization (1 of 2 - 13+ 2-dose series) 1971 Pneumococcal Immunization (5 0+ years) (1 of 2 - PCV) 1977 Cologuard 2003 Colonoscopy 2003 Colorectal Cancer Screening 2003 Immunochemical Fecal Occult Blood 2003 Zoster Immunization (1 of 2) 01/11/2008 Influenza Immunization (#1) 2024 SARS-COV-2 Immunization ( season) 2024 Respiratory Syncytial Virus (RSV) Immunization (Adult) [...] this topic Medical Devices Implanted Type Area Clinique Counter Manager Device Identifier Shelf Expiration Date Model / Serial / Lot 2-Step Implant Implanted:Qty: 1 on 12/06/2017 by Keegan Quevedo DPM at [facility] Right: Toe [employer] / / 0.045 K- Wire Implanted:Qty: 1 on 12/06/2017 by Keegan Quevedo DPM at [facility] Right: Toe - / / Explanted Type Area Clinique Counter Manager Device Identifier Shelf Expiration Date Model / Serial / Lot 2 Step Implant Explanted:Qty: 1 on 12/06/2017 at [facility] Right: Toe [employer] - / / 0.045 K-Wire Explanted:Qty: 1 on 12/06/2017 at [facility] Right: Toe -006 / / Care Teams Repairer Hairspring Relationship Specialty Start Date End Date Michelet Black MD [address] [address] PCP - General Family Medicine 12/01/17
== END 2025-01-27 09:05 | disposition home or self-care (01) ==
PROVIDERS: PCP Family Medicine; Visit Provider Orthopaedic Surgery
DX: M17.0 Bilateral primary osteoarthritis of knee (principal)
CPT/HCPCS: 73564